=== PATIENT | female | born 1965 | race Caucasian/White ===

== ENCOUNTER 2017-01-05 18:27 | Emergency (ER) | payer MEDICAID ==
[~2017-01-05] VITALS: Ht 172.7 cm; Wt 86.0 kg
[~2017-01-05 18:27] MED LIST: DIAZ10TA PO; DIAZ10TA4 PO; DULO20CA45 PO; DULO60CA55 PO; GABA600T2 PO; GABA800T; GABA800T2 PO; IBUP800T PO; LORA-446 PO; LORA0.5T; LORA1TAB PO; METH500T7 PO; MORP30TA81 PO; MULT-6 PO; ONDA4TAB7 PO; OXYC-229 PO; OXYC10TA6 PO; OXYC20TA2 PO; OXYC30TA PO; OXYC5CAP4 PO; OXYC5TAB3 PO; QUET25TA PO; RIVA1TAB PO; TRAZ150T68 PO; WARF4TAB PO; ZOLP10TA PO
[2017-01-05] MEDS ORDERED: SODIUM CHLORIDE 0.9% 1,000 ML IV ONE (19:16)
[2017-01-05] MEDS ORDERED: LORazepam 2 MG/ML, 1ML ONE (19:28)
[2017-01-05] MEDS ORDERED: KETOROLAC 30 MG/1 ML ONE (19:29)
[2017-01-05] MEDS ORDERED: LORazepam 2 MG/ML, 1ML IVPush ONE (19:30)
[2017-01-05] MEDS ORDERED: ASPIRIN 81 MG TABLET CHEW PO ONE (19:30)
[2017-01-05] MEDS ORDERED: MORPHINE SULFATE 4 MG/ML, 1ML IVPush ONE (19:30)
[2017-01-05] MEDS ORDERED: KETOROLAC 30 MG/1 ML IVPush ONE (19:30)
[2017-01-05] MEDS ORDERED: ASPIRIN 81 MG TABLET CHEW ONE (19:30)
[2017-01-05 19:43] LABS: ASPARTATE AMINO TRANSFERASE 9 U/L (15-37); BLOOD UREA NITROGEN 16 mg/dL (7-18)
[2017-01-05 19:49] LABS: IS PT STATUS REG ER OR PRE ER? YES
[2017-01-05] MEDS ORDERED: PLEASE ENTER HEIGHT AND WEIGHT MC SCH ×2 (20:00)
[2017-01-05] MEDS ORDERED: ONDANSETRON 2MG/ML, 2ML IVPush ONE (20:00)
[2017-01-05] MEDS ORDERED: ONDANSETRON 2MG/ML, 2ML ONE (20:09)
[2017-01-05] MEDS ORDERED: MORPHINE SULFATE 4 MG/ML, 1ML ONE (20:18)
[2017-01-05] MEDS ORDERED: OXYC10TA6 PO (21:42)
[2017-01-05] MEDS ORDERED: WARF3TAB7 PO (21:42)
[2017-01-05] MEDS ORDERED: [UNRECOGNIZED DRUG - REMARK] PO (21:42)
[2017-01-05] MEDS ORDERED: OXYM20TA13 PO (21:42)
[2017-01-05] MEDS ORDERED: GABA600T2 PO (21:42)
[2017-01-05 22:16] VITALS: BP 105/60
[2017-01-06] MEDS ORDERED: OMNIPAQUE 350 MG/ML, 100ML BOTTLE ONE (04:17)
== END 2017-01-05 22:36 | disposition home or self-care (01) ==
LOC: ED 20:28
DX: R07.89 Other chest pain (principal); M79.1 Myalgia; R11.0 Nausea; Z86.711 Personal history of pulmonary embolism; Z79.01 Long term (current) use of anticoagulants; Z88.6 Allergy status to analgesic agent
CPT/HCPCS: 36415; 71010; 71275; 80053; 81001; 84484; 85025; 85610; 87086; 93005; 96361; 96374; 96375; 99285; J1885; J2060; J2405; J7030; Q9967

== ENCOUNTER 2017-01-08 11:11 | Emergency (ER) | payer MEDICAID ==
[~2017-01-08] VITALS: Ht 172.7 cm; Wt 86.0 kg
[~2017-01-08 11:11] MED LIST changes: +OXYM20TA13 PO; +WARF3TAB7 PO; +[UNRECOGNIZED DRUG - REMARK] PO
[2017-01-08] MEDS ORDERED: SODIUM CHLORIDE FLUSH 10ML SYR IVF ONE (12:30)
[2017-01-08] MEDS ORDERED: ONDANSETRON 2MG/ML, 2ML IVPush ONE (12:30)
[2017-01-08] MEDS ORDERED: MORPHINE SULFATE 4 MG/ML, 1ML ONE ×3 (12:42→14:26)
[2017-01-08] MEDS ORDERED: ONDANSETRON 2MG/ML, 2ML ONE (12:42)
[2017-01-08 12:54] LABS: BLOOD UREA NITROGEN 17 mg/dL (7-18)
[2017-01-08] MEDS: MORPHINE SULFATE 4 MG/ML, 1ML IVPush PRN ×2 (12:55→14:31)
[2017-01-08 12:59] LABS: IS PT STATUS REG ER OR PRE ER? YES
[2017-01-08] MEDS ORDERED: ENOXAPARIN 80 MG/0.8 ML SQ ONE (15:00)
[2017-01-08] MEDS ORDERED: ENOXAPARIN 80 MG/0.8 ML ONE (15:33)
[2017-01-08 15:56] VITALS: BP 110/56
== END 2017-01-08 15:58 | disposition home or self-care (01) ==
LOC: ED 15:52
DX: R07.2 Precordial pain (principal); Z86.718 Personal history of other venous thrombosis and embolism
CPT/HCPCS: 36415; 71010; 80048; 82040; 84484; 85025; 85379; 85610; 93005; 96372; 96374; 96375; 96376; 99285; J1650; J2405

== ENCOUNTER 2017-02-15 15:53 | Emergency (ER) | payer MEDICAID ==
[~2017-02-15] VITALS: Ht 172.7 cm; Wt 81.8 kg
[2017-02-15 16:48] LABS: BLOOD UREA NITROGEN 15 mg/dL (7-18)
[2017-02-15] MEDS ORDERED: MORPHINE SULFATE 4 MG/ML, 1ML ONE (16:53)
[2017-02-15 16:54] LABS: IS PT STATUS REG ER OR PRE ER? YES
[2017-02-15] MEDS ORDERED: METOCLOPRAMIDE 5 MG/ML, 2ML ONE (16:54)
[2017-02-15] MEDS ORDERED: DIPHENHYDRAMINE 50 MG/ML, 1ML ONE (16:54)
[2017-02-15] MEDS ORDERED: SODIUM CHLORIDE 0.9% 1,000ML IVBOLUS ONE (17:00)
[2017-02-15] MEDS ORDERED: MORPHINE SULFATE 4 MG/ML, 1ML IVPush PRN (17:00)
[2017-02-15] MEDS ORDERED: SODIUM CHLORIDE FLUSH 10ML SYR IVF ONE (17:00)
[2017-02-15] MEDS ORDERED: DIPHENHYDRAMINE 50 MG/ML, 1ML IVPush ONE (17:00)
[2017-02-15] MEDS ORDERED: METOCLOPRAMIDE 5 MG/ML, 2ML IVPush ONE (17:00)
[2017-02-15] MEDS ORDERED: KETOROLAC 30 MG/1 ML IVPush ONE (18:30)
[2017-02-15] MEDS ORDERED: KETOROLAC 30 MG/1 ML ONE ×2 (18:33→18:39)
[2017-02-15] MEDS ORDERED: KETAMINE 100 MG/ML, 5ML IV ONE (19:00)
[2017-02-15] MEDS ORDERED: KETOROLAC 30 MG/1 ML IM ONE (19:00)
[2017-02-15] MEDS ORDERED: KETAMINE 10 MG/ML, 20ML ONE (19:24)
[2017-02-15 20:36] VITALS: BP 105/70
== END 2017-02-15 20:38 | disposition home or self-care (01) ==
LOC: ED 17:28
DX: R07.89 Other chest pain (principal); F41.1 Generalized anxiety disorder; Z86.718 Personal history of other venous thrombosis and embolism
CPT/HCPCS: 36415; 71010; 80048; 82040; 84484; 85025; 93005; 96361; 96372; 96374; 96375; 99285; J1200; J1885; J2765; J7030

== ENCOUNTER 2017-02-23 17:08 | Inpatient (IN) | payer MEDICAID ==
[~2017-02-23] VITALS: Ht 165.1 cm; Wt 88.9 kg
[2017-02-23] MEDS ORDERED: SODIUM CHLORIDE 0.9% 1,000ML IVBOLUS ONE (17:30)
[2017-02-23] MEDS ORDERED: PLEASE ENTER HEIGHT AND WEIGHT MC SCH (17:30)
[2017-02-23] MEDS ORDERED: CHARCOAL/SORBITOL 50 GM/240 ML PO ONE ×2 (17:30→18:00)
[2017-02-23] MEDS ORDERED: NALOXONE 0.4 MG/ML, 1ML IVPush PRN (17:30)
[2017-02-23] MEDS ORDERED: CHARCOAL/SORBITOL 50 GM/240 ML ONE (17:31)
[2017-02-23 17:43] LABS: BLOOD UREA NITROGEN 19 mg/dL (7-18)
[2017-02-23 17:46] LABS: ASPARTATE AMINO TRANSFERASE 14 U/L (15-37)
[2017-02-23 17:51] LABS: ACETAMINOPHEN < 2 mcg/mL (10-30)
[2017-02-23] MEDS ORDERED: POLYETHYLENE GLYCOL 17 GM PACKET PO PRN (20:30)
[2017-02-23] MEDS ORDERED: BISACODYL 10 MG SUPP PR PRN (20:30)
[2017-02-23 22:45] VITALS: BP 109/74
[2017-02-23] MEDS: HEPARIN 5,000 UNITS/ML, 1ML SQ SCH (22:49)
[2017-02-23] MEDS: NICOTINE 7 MG/24 HR PATCH.TD24 TD SCH (22:49)
[2017-02-23] MEDS: SODIUM CHLORIDE 0.9% 1,000 ML IV SCH (22:49)
[2017-02-24] MEDS: ONDANSETRON 2MG/ML, 2ML IVPush PRN ×2 (00:28→11:38)
[2017-02-24 01:24] LABS: DAU SCREEN DISCLAIMER
[2017-02-24 02:01] VITALS: BP 117/81
[2017-02-24 05:32] LABS: BLOOD UREA NITROGEN 18 mg/dL (7-18)
[2017-02-24 05:35] LABS: ASPARTATE AMINO TRANSFERASE 10 U/L (15-37)
[2017-02-24] MEDS: HEPARIN 5,000 UNITS/ML, 1ML SQ SCH ×3 (06:09→22:33)
[2017-02-24] MEDS: SODIUM CHLORIDE 0.9% 1,000 ML IV SCH ×3 (06:11→22:45)
[2017-02-24 07:07] VITALS: BP 109/67
[2017-02-24] MEDS ORDERED: WARFARIN 2 MG TABLET PO-COUM SCH (09:00)
[2017-02-24] MEDS: SENNA/DOCUSATE TABLET PO SCH (09:00)
[2017-02-24] MEDS ORDERED: SUMATRIPTAN 6MG/0.5ML SQ ONE (11:30)
[2017-02-24 12:59] VITALS: BP 133/75
[2017-02-24] MEDS ORDERED: WARFARIN 5 MG TABLET PO-COUM ONE (18:00)
[2017-02-24 18:14] VITALS: BP 108/70
[2017-02-24] MEDS: SUMATRIPTAN 25 MG TABLET PO PRN (22:33)
[2017-02-24] MEDS: NICOTINE 7 MG/24 HR PATCH.TD24 TD SCH (22:33)
[2017-02-25 01:37] VITALS: BP 159/78
[2017-02-25] MEDS: SODIUM CHLORIDE 0.9% 1,000 ML IV SCH (06:47)
[2017-02-25 07:29] VITALS: BP 102/66
[2017-02-25] MEDS: HEPARIN 5,000 UNITS/ML, 1ML SQ SCH ×2 (07:48→09:18)
[2017-02-25] MEDS: SENNA/DOCUSATE TABLET PO SCH ×2 (07:49→09:18)
[2017-02-25] MEDS: SUMATRIPTAN 25 MG TABLET PO PRN ×2 (09:19→20:48)
[2017-02-25] MEDS ORDERED: WARF7.5T PO-COUM (09:27)
[2017-02-25 12:12] VITALS: BP 122/80
[2017-02-25] MEDS: LORazepam 1MG TABLET PO PRN ×2 (15:26→19:56)
[2017-02-25] MEDS ORDERED: WARFARIN 7.5 MG TABLET PO-COUM ONE (18:00)
[2017-02-25 19:42] VITALS: BP 120/63
[2017-02-26 08:00] VITALS: BP 116/75
[2017-02-26] MEDS: LORazepam 1MG TABLET PO PRN ×3 (09:57→18:32)
[2017-02-26] MEDS: SUMATRIPTAN 25 MG TABLET PO PRN (10:08)
[2017-02-26] MEDS ORDERED: WARFARIN 7.5 MG TABLET PO-COUM ONE (18:00)
== END 2017-02-26 18:45 | DRG 918 ==
LOC: ED 18:19 → EDIP 19:37 → 4EST 21:25 → 3E 02-25 12:11
PROVIDERS: ADMIT Internal Medicine; ATTEND Internal Medicine
DX: T42.4X2A Poisoning by benzodiazepines, intentional self-harm, initial encounter (principal); F11.20 Opioid dependence, uncomplicated; T40.2X2A Poisoning by other opioids, intentional self-harm, initial encounter; G89.29 Other chronic pain; M54.9 Dorsalgia, unspecified; F32.9 Major depressive disorder, single episode, unspecified; Z86.711 Personal history of pulmonary embolism; Z79.01 Long term (current) use of anticoagulants; F17.210 Nicotine dependence, cigarettes, uncomplicated; F12.90 Cannabis use, unspecified, uncomplicated; Y92.9 Unspecified place or not applicable; Z98.51 Tubal ligation status; Z90.49 Acquired absence of other specified parts of digestive tract; Z88.6 Allergy status to analgesic agent; Z88.8 Allergy status to other drugs, medicaments and biological substances
CPT/HCPCS: 36415; 70450; 80053; 80307; 80329; 85025; 85610; 93005; 96360; 96361; J1644; J2405; G0480; J3030; J7030